=== PATIENT | female | born 1975 | race Caucasian/White ===

== ENCOUNTER 2017-10-10 21:13 | Emergency (ER) | payer MEDICAID ==
[~2017-10-10] VITALS: Ht 157.5 cm; Wt 115.7 kg
[2017-10-10 21:32] VITALS: BP 150/91
[2017-10-11] MEDS ORDERED: methylPREDNISolone SOD SUCC 125 MG/2 ML VL IM ONE (00:15)
[2017-10-11] MEDS ORDERED: diphenhdrAMINE HCL 50 MG/1 ML VL IM ONE (00:15)
== END 2017-10-11 01:00 | disposition home or self-care (01) ==
LOC: ER 21:13
DX: T78.40XA Allergy, unspecified, initial encounter (principal)
CPT/HCPCS: 96372; 99284; J1200; J2930

== ENCOUNTER 2019-07-09 10:43 | Emergency (ER) | payer MEDICAID ==
[~2019-07-09] VITALS: Ht 157.5 cm; Wt 113.4 kg
[2019-07-09] MEDS ORDERED: KETOROLAC TROMETH 30 MG/ML 1ML VIAL IV ONE (11:00)
[2019-07-09 12:28] VITALS: BP 103/51
[2019-07-09] MEDS ORDERED: MORPHINE SULFATE 4 MG/ML SYR/VIAL IV ONE (12:30)
[2019-07-09] MEDS ORDERED: ONDANSETRON HCL 4 MG/2 ML VIAL IV ONE (12:30)
== END 2019-07-09 13:58 | disposition home or self-care (01) ==
LOC: EDBD 10:43 → ER 10:52
DX: M79.10 Myalgia, unspecified site (principal); M54.5 Low back pain; E11.9 Type 2 diabetes mellitus without complications; I10 Essential (primary) hypertension; Z88.8 Allergy status to other drugs, medicaments and biological substances; Z90.49 Acquired absence of other specified parts of digestive tract
CPT/HCPCS: 72100; 74176; 96374; 96375; 99284; J1885; J2270; J2405